=== PATIENT | female | born 1955 | race Caucasian/White ===

== ENCOUNTER 2021-01-29 22:09 | Inpatient (IN) | payer OTHER ==
[~2021-01-29] VITALS: Ht 162.6 cm; Wt 59.9 kg
[2021-01-30 11:50] LABS: LDH, BODY FLUID 93 U/L; TOTAL PROTEIN, BODY FLUID 2.5 gm/dL
[2021-01-30 11:54] LABS: HEMOGLOBIN 12.9 gm/dl (12.3-15.3); RED BLOOD COUNT 4.99 M/UL (4.00-5.10); WHITE BLOOD COUNT 7.4 K/UL (4.5-11.0)
[2021-01-30] MEDS ORDERED: LIPITOR20 MG PO (12:06)
[2021-01-30] MEDS ORDERED: ASPIRIN81 MG PO (12:06)
[2021-01-30] MEDS ORDERED: VITAMIN C500 M4 PO (12:06)
[2021-01-30] MEDS ORDERED: ZYRTEC10 MG PO (12:07)
[2021-01-30] MEDS ORDERED: COZAAR25 MG PO (12:07)
[2021-01-30] MEDS ORDERED: PLAVIX 75 MG TA75 MG PO (12:07)
[2021-01-30] MEDS ORDERED: LOVAZA1 GM PO (12:09)
[2021-01-30] MEDS ORDERED: DAILY-VITE1 EACH PO (12:09)
[2021-01-30] MEDS ORDERED: PROTONIX 40 MG40 M1 PO (12:09)
[2021-01-30] MEDS ORDERED: ZOLOFT100 MG PO (12:10)
[2021-01-30 12:21] LABS: BUN/CREATININE RATIO 25 (0-10)
[2021-01-30 12:29] LABS: BODY FLUID SOURCE PLEURAL; MONONUCLEAR CELLS 65 (75-100); POLYMORPHONUCLEAR % 35 (0-25); RBC (AUTOMATED) 100 (0-100000); WBC (AUTOMATED) 163 (0-500)
[2021-01-30] MEDS ORDERED: ACETAMINOPHEN325 MG PO (13:18)
[2021-01-30] MEDS ORDERED: LANTUS100 UNIT/1 SQ (13:19)
[2021-01-30] MEDS ORDERED: MEROPENEM1 GM IV (13:20)
[2021-01-30] MEDS ORDERED: VANCOMYCIN HCL1 GM IV (13:20)
[2021-01-30] MEDS ORDERED: HUMALOG100 UNIT/1 SC (13:24)
[2021-01-30] MEDS ORDERED: LASIX40 MG PO (16:20)
[2021-01-30] MEDS ORDERED: POTASSIUM CHLO20 MEQ PO (16:20)
== END 2021-01-30 20:40 | DRG 291 ==
LOC: CCU 22:09
PROVIDERS: Physician Assistant Medical; ADMIT Internal Medicine
PROC: 0W993ZZ Drainage of Right Pleural Cavity, Percutaneous Approach (ICD-10-PCS; principal; 2021-01-30)
PROC: 0W9B30Z Drainage of Left Pleural Cavity with Drainage Device, Percutaneous Approach (ICD-10-PCS; 2021-01-30)
DX: I11.0 Hypertensive heart disease with heart failure (principal); L89.153 Pressure ulcer of sacral region, stage 3; J96.01 Acute respiratory failure with hypoxia; I49.01 Ventricular fibrillation; I82.402 Acute embolism and thrombosis of unspecified deep veins of left lower extremity; I25.10 Atherosclerotic heart disease of native coronary artery without angina pectoris; E11.9 Type 2 diabetes mellitus without complications; I50.23 Acute on chronic systolic (congestive) heart failure; E11.649 Type 2 diabetes mellitus with hypoglycemia without coma; I25.5 Ischemic cardiomyopathy; Z89.411 Acquired absence of right great toe; Z95.5 Presence of coronary angioplasty implant and graft
CPT/HCPCS: 36415; 36600; 71045; 80053; 80202; 82803; 82962; 83036; 83615; 83735; 84157; 85025; 87070; 87205; 89051; 94760; C1729; J1940; J2185; J3370; J3475; J7050; J7070